=== PATIENT | female | born 2000 | race Caucasian/White ===

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

== ENCOUNTER → 2018-01-02 | Outpatient (CLI) | payer BC | LOC: BHSO 15:11 | DX: F31.81 Bipolar II disorder (principal) | CPT/HCPCS: G0463 ==

== ENCOUNTER → 2018-01-16 | Outpatient (CLI) | payer BC | LOC: BHSO 08:40 | DX: F31.81 Bipolar II disorder (principal) | CPT/HCPCS: G0463 ==

== ENCOUNTER → 2018-02-19 | Outpatient (CLI) | payer BC | LOC: BHSO 14:02 | DX: F31.81 Bipolar II disorder (principal) | CPT/HCPCS: G0463 ==